=== PATIENT | male | born 1990 | race Two or more races ===

== ENCOUNTER 2019-09-20 13:44 | Emergency (ER) | payer BC, OTHER ==
[~2019-09-20] VITALS: Ht 162.6 cm; Wt 71.0 kg
[2019-09-20 13:49] VITALS: BP 167/126
[2019-09-20] MEDS ORDERED: KETOROLAC 30 MG/1 ML ONE (14:13)
--- NOTE | 2019-09-20 14:17 | NUR ---
PT TO ED AFTER APPT WITH CARDS TODAY, REPEAT EKG SHOWING "ABNORMALITIES", PT HAVING INTERMITTENT CHEST PRESSURE AND SHARP PAIN SINCE WEDNESDAY, HAS HAD EPISODES LIKE THIS IN THE PAST, FEELS LIKE CAN'T TAKE A DEEP BREATH, NON-RADIATING. PT MEDICATED PER JUN. LAB AND XRAY AT BEDSIDE.
--- NOTE | 2019-09-20 14:19 | NUR ---
EKG DONE IN TRIAGE
[2019-09-20] MEDS ORDERED: KETOROLAC 30 MG/1 ML IM ONE (14:30)
[2019-09-20 14:43] LABS: TROPONIN I < 0.015 ng/mL (0.000-0.045)
== END 2019-09-20 15:35 | disposition home or self-care (01) ==
LOC: ED 15:25
DX: R07.89 Other chest pain (principal); I21.02 ST elevation (STEMI) myocardial infarction involving left anterior descending coronary artery; I10 Essential (primary) hypertension; J45.909 Unspecified asthma, uncomplicated
CPT/HCPCS: 36415; 71045; 84484; 93005; 96372; 99285; J1885